=== PATIENT | female | born 1975 | race Two or more races ===

== ENCOUNTER 2016-12-13 10:15 | Emergency (ER) | payer OTHER ==
[2016-12-13] MEDS ORDERED: Ketorolac INJ* 60 MG/2 ML VIAL IM ONE (12:04)
[2016-12-13 12:18] LABS: Urine Bilirubin Negative (Negative); Urine Glucose Negative (Negative); Urine Nitrite Negative (Negative)
--- NOTE | 2016-12-13 12:40 | RAD ---
Indication: Left hip pain. Single view of the pelvis and 2 views of left hip demonstrates pelvic ring to be intact. Joint spaces are well-preserved. IMPRESSION: No fracture of the left hip is noted.
--- NOTE | 2016-12-13 12:42 | RAD ---
HISTORY: Left hip pain and low back pain COMPARISONS: CT of the lumbar spine dated November 17, 2014 VIEWS: 5 , Frontal, lateral, coned-down lateral sacral, and bilateral oblique views of the lumbar spine. FINDINGS: There is transitional last lumbar type vertebral Y which will be labeled L5 for the purposes of counting. ALIGNMENT: There is straightening of the normal lumbar lordosis. VERTEBRAL BODIES: The vertebral body heights are normal. The interpedicular distances are normal. There is partial sacralization of the L5 vertebral body JOINTS: The facet joints are normal. INTERVERTEBRAL DISCS: The intervertebral disc heights are normal. SOFT TISSUE: Unremarkable. OTHER: The pelvis is unremarkable. The lung bases are clear. IMPRESSION: STRAIGHTENING OF THE LUMBAR LORDOSIS
--- NOTE | 2016-12-13 12:47 | ED ---
Back Pain - HPI Summary HPI Summary: 41 female presents with complains of lower back and left hip pain that began suddenly Sunday night 12/09/16. 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 This time she woke up with the pain that she describes as sharp shooting pain in her lower back and left hip that radiates down her left leg. She tried taking 600mg of ibuprofen and aleve for the past 4 days without any relief. She has also tried heat, ice, icy hot patches and flexeril without any relief. Pain has been increasingly getting worse over the past few days to the point she has been unable to bear weight and move without excruciating pain. She denies any bladder/bowel incontinence, saddle anesthesia and cauda equina symptoms. Patient states the pain is worse when applying pressure to her hip and does admit to some numbness that comes and goes. Pain is constant. History of back pain. PMHx of uterine cancer. (-) risk factors for blood clot. - History of Current Complaint Chief Complaint: EDHipPelvisInjury Stated Complaint: LT HIP /LOWER BACK PAIN Time Seen by Provider: 12/13/16 11:22 Hx Obtained From: Patient Onset/Duration: Sudden Onset, Lasting Days, Still Present, Worse Since Onset/Duration: Started Days Ago Timing: Constant Back Pain Location: Is Diffuse - lower left back and left hip, Radiates To - left hip, left leg Severity Initially: Moderate Severity Currently: Severe Pain Intensity: 7 Pain Scale Used: 0-10 Numeric Character: Sharp, Aching, Throbbing, Spasmodic Aggravating Symptom(s): Movement, Lifting, Bending, Walking, Cough Alleviating Symptom(s): Nothing Associated Signs And Symptoms: Positive: Swelling, Numbness, Pain with Weight Bearing. Negative: Redness, Bruising, Fever, Tingling, Bladder Incontinence, Bowel Incontinence, Weight Loss - Risk Factors TAD Risk Factors: Negative Cauda Equina Risk Factors: Negative Epidural Abscess Risk Factors: Negative - Allergies/Home Medications Allergies/Adverse Reactions: Allergies Allergy/AdvReac Type Severity Reaction Status Date / Time Morphine Allergy Hives/Diff. Verified 12/13/16 13:24 Breathing/I tching PMH/Surg Hx/FS Hx/Imm Hx Endocrine/Hematology History: Denies: Hx Diabetes Cardiovascular History: Denies: Hx Congestive Heart Failure, Hx Hypertension Respiratory History: Reports: Other Respiratory Problems/Disorders - H/O TB AT 15 Y.O. 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 - Surgical History Surgery Procedure, Year, and Place: HYSTERECTOMY Infectious Disease History: No Infectious Disease History: Reports: Hx Tuberculosis - at age 16 Denies: Traveled Outside the [place] in Last 30 Days - Social History Alcohol Use: Weekly Substance Use Type: Reports: None Hx Tobacco Use: No Smoking Status (MU): Never Smoked Tobacco Review of Systems Constitutional: Negative Eyes: Negative ENT: Negative Cardiovascular: Negative Respiratory: Negative Gastrointestinal: Negative Genitourinary: Negative Positive: Arthralgia, Myalgia, Decreased ROM, Edema Skin: Negative Positive: Numbness - left leg Psychological: Normal All Other Systems Reviewed And Are Negative: Yes Physical Exam Triage Information Reviewed: Yes Vital Signs On Initial Exam: Initial Vitals Temp Pulse Resp BP Pulse Ox 98.2 F 74 18 123/68 100 12/13/16 10:26 12/13/16 10:26 12/13/16 10:26 12/13/16 10:26 12/13/16 10:26 Vital Signs Reviewed: Yes Appearance: Positive: Well-Appearing, Pain Distress - moderate pain distress Skin: Positive: Warm, Skin Color Reflects Adequate Perfusion, Dry Head/Face: Positive: Normal Head/Face Inspection Eyes: Positive: Conjunctiva Clear ENT: Positive: Normal ENT inspection, Hearing grossly normal Neck: Positive: Supple, Nontender, No Lymphadenopathy Respiratory/Lung Sounds: Positive: Clear to Auscultation, Breath Sounds Present Cardiovascular: Positive: Normal, RRR, Pulses are Symmetrical in both Upper and Lower Extremities. Negative: Leg Edema Left, Leg Edema Right Abdomen Description: Positive: Nontender, No Organomegaly, Soft Bowel Sounds: Positive: Present Musculoskeletal: Positive: Normal, Limited @ - left leg with any movement, positive SLR, Pain @ - with left leg movement, no tenderness on palpation of left leg, some tenderness on palpation of left hip, buttocks and lower left lumbosacral spine. sensation and skin intact. left foot ROM and entire right lower extremity intact, normal. strength intact. unable to assess gait and strength of left lower extremitiy due to pain. no obvious deformities, crepitus or step off noted. no edema, erythema or ecchymosis. Negative: David Sign Left , David Sign Right Neurological: Positive: Normal, Sensory/Motor Intact, Alert, Oriented to Person Place, Time, CN Intact II-III, Reflexes Intact, NV Bundle Intact Distally, Unable to Assess Gait - Charline Coma Scale Coma Scale Total: 15 Diagnostics - Vital Signs Vital Signs Temp Pulse Resp BP Pulse Ox 12/13/16 10:26 98.2 F 74 18 123/68 100 - Laboratory Lab Results: Lab Results 12/13/16 Range/Units 12:05 Urine Color Straw Urine Appearance Clear Urine pH 8.0 (5-9) Ur Specific [place] 1.009 L (1.010-1.030) Urine Protein Negative (Negative) Urine Ketones Negative (Negative) Urine Blood Negative (Negative) Urine Nitrate Negative (Negative) Urine Bilirubin Negative (Negative) Urine Urobilinogen Negative (Negative) Ur Leukocyte Esterase Negative (Negative) Urine Glucose Negative (Negative) Lab Statement: Any lab studies that have been ordered have been reviewed, and results considered in the medical decision making process. - Radiology left hip Xray Interpretation: No Acute Changes - No fracture of the left hip is noted. Radiology Interpretation Completed By: Radiologist lumbar spine Xray Interpretation: Positive (See Comments) - STRAIGHTENING OF THE LUMBAR LORDOSIS Radiology Interpretation Completed By: Radiologist Re-Evaluation - Re-Evaluation First Eval Re-Evaluation Time: 12:55 Change: Unchanged - patient had just recieved toradol about 10 minutes ago. will re-check Second Eval Re-Evaluation Time: 13:30 Change: Improved Comment: patients pain is unchagned after toradol, percocet and lidoderm patch administered. Third Eval Re-Evaluation Time: 15:59 Change: Unchanged Comment: patient given valium and had some relief Fourth Eval Re-Evaluation Time: 16:22 Change: Improved Comment: appears comfortale and has had some relief. will be d/c Back Pain Course/Dx - Course Course Of Treatment: Appeared to be suffering from sciatica due to PE findings and history of current illness. patient was given toradol, decadron due to sensitivity with taking oral steroids, 2 percocet, and a lidoderm patch without any relief. X-rays of hip and lumbarsacral spine and UA obtained and negative. Patient has no risk factors for DVT and PE does not appear to be related to a blood clot. Appears to be MSK related as textbook signs and symptoms of sciatica. No symptoms of cauda equina. Patient has been taking flexeril at home , a quarter of one due to feeling very drowsy after taking them, and has not had any relief. Dr Gibbs also evaluated patient as I discussed case with him. Given valium. patient's pain was hard to get under control before being discharged. Patient will be discharged home told to follow up with primary care provider tomorrow for further steriod administration and to ensure improvement. - Diagnoses Differential Diagnosis/HQI/PQRI: Positive: Herniated Disc, Strain, Sprain Provider Diagnoses: Sciatica of left side, Lumbosacral strain, Low back pain with radiation - Provider Notifications Discussed Care of Patient With: Dr Gibbs Time Discussed With Above Provider: 14:30 Discharge - Discharge Plan Condition: Stable Disposition: HOME Prescriptions: oxyCODONE/Acetamin 5/325 MG* [Percocet 5/325 TAB*] 1 tab PO Q4H PRN #15 tab MDD 8 PRN Reason: Pain Patient Education Materials: Sciatica (ED) Forms: *Work Release Referrals: Jacobo Alexander MD [Primary Care Provider] - Additional Instructions: Take prescribed pain medication to help with pain. Do not drive while taking this medication. Continue taking 600mg Ibuprofen for inflammation. Take with food. Continue taking muscle relaxer every night for the next 3-5 nights. Try getting lidoderm patches such as "Salon Pas" OTC and apply to area of pain every 12 hours. Take off after 12 hours of use. Follow up with primary care provider to obtain more steroid IM injections since you are unable to take them orally and for further imaging referral if necessary. If symptoms worsen such as increasing numbness in your inner thighs, inability to go to the bathroom ( urinate or defecate) please return to ED immediately.
[2016-12-13] MEDS ORDERED: Dexamethasone IV* 4 MG/ML 1 ML (4 MG) IM ONE (13:06)
[2016-12-13] MEDS ORDERED: Lidocaine PATCH 5%* 1 PATCH ONE (13:24)
[2016-12-13] MEDS ORDERED: oxyCODONE/Acetamin 5/325 MG* TAB PO ONE ×2 (13:27→14:24)
[2016-12-13] MEDS ORDERED: Lidocaine PATCH 5%* 1 PATCH TRANSDERM SCH (14:00)
[2016-12-13] MEDS ORDERED: Diazepam TAB(*) 2 MG PO ONE (15:31)
[2016-12-13 17:06] VITALS: BP 122/66
[2016-12-13] MEDS ORDERED: Lidocaine Patch REMOVE* 1 NOTE MISC PATCH OFF SCH (21:00)
== END 2016-12-13 17:04 | disposition home or self-care (01) ==
LOC: ED 10:15
DX: M54.42 Lumbago with sciatica, left side (principal); S39.012A Strain of muscle, fascia and tendon of lower back, initial encounter; X58.XXXA Exposure to other specified factors, initial encounter; Y93.9 Activity, unspecified; Y92.9 Unspecified place or not applicable
CPT/HCPCS: 72110; 81003; 96374; 96375; 99283; A9270-GY; J1100; J1885

== ENCOUNTER 2017-11-03 08:45 | Emergency (ER) | payer OTHER ==
--- NOTE | 2017-11-03 09:58 | RAD ---
HISTORY: Cough, fever COMPARISONS: February 25, 2016 VIEWS: 4: Frontal dual-energy and lateral views of the chest. FINDINGS: CARDIOMEDIASTINAL SILHOUETTE: The cardiomediastinal silhouette is normal. JAVIER: The javier are normal. PLEURA: The costophrenic angles are sharp. No pleural abnormalities are noted. LUNG PARENCHYMA: The lungs are clear. ABDOMEN: The upper abdomen is clear. There is no subphrenic gas. BONES AND SOFT TISSUES: The patient is status post anterior cervical fusion. Patient is status post bilateral breast augmentation. OTHER: None. IMPRESSION: NO ACTIVE CARDIOPULMONARY DISEASE.
[2017-11-03 10:58] VITALS: BP 111/78
--- NOTE | 2017-11-03 12:31 | UC ---
Graciela Stinson Nilda, scribed for Carie Lino DO on 11/03/17 at 0911 . Respiratory Complaint HPI - HPI Summary HPI Summary: This patient is a 42 year old F presenting to [facility] with a chief complaint of constant cold symptoms for the past 4 weeks. The patient rates the aching pain 6 /10 in severity. Symptoms aggravated by movement and alleviated by rest. Patient reports bilateral eye injection (burning), eye drainage, nasal congestion, rhinorrhea (green), sore throat, and ear pain. For the past two days , pt has experienced diarrhea (watery, 3x), abd cramping, myalgia, headache ( pressure), fatigue, productive cough (dao), fever (last night, 101 F), and chills. She states, the base of my lungs hurt when I cough. Patient denies bloody stools, malodorous stool, urinary symptoms, abd pain when hitting bumps in the road, and rashes. She notes she was recently in [place] to visit sick father in the hospital, and [place] the [place] about 4 days ago. - History of Current Complaint Chief Complaint: UCRespiratory Stated Complaint: URI Time Seen by Provider: 11/03/17 09:04 Hx Obtained From: Patient Onset/Duration: Sudden Onset, Lasting Weeks, Still Present Timing: Constant Severity Currently: Moderate Pain Intensity: 6 Pain Scale Used: 0-10 Numeric Character: Cough: Productive Aggravating Factors: Exertion Alleviating Factors: Other - rest Associated Signs And Symptoms: Positive: Fever, Chills, Nasal Congestion, Sinus Discomfort - Allergies/Home Medications Allergies/Adverse Reactions: Allergies Allergy/AdvReac Type Severity Reaction Status Date / Time Morphine Allergy Hives/Diff. Verified 01/04/17 08:56 Breathing/I tching Prednisone AdvReac Nausea Verified 02/16/17 14:03 Home Medications: Home Medications Acetaminophen [APAP] 650 mg PO 11/03/17 [History] PMH/Surg Hx/FS Hx/Imm Hx Previously Healthy: Yes Cancer History: Other Other Cancer History: uterine cancer - Surgical History Surgical History: Yes Surgery Procedure, Year, and Place: HYSTERECTOMY - Family History Known Family History: Positive: Hypertension, Other - liver CA, breast CA - Social History Occupation: Employed Full-time - ICU nurse Alcohol Use: None Substance Use Type: None Smoking Status (MU): Former Smoker Type: Cigarettes Have You Smoked in the Last Year: No - Immunization History Most Recent Influenza Vaccination: 2014 Most Recent Tetanus Shot: 2010 Most Recent Pneumonia Vaccination: none Review of Systems Constitutional: Fever, Chills, Fatigue Skin: Other - negative rash Eyes: Drainage, Eye Redness ENT: Sore Throat, Ear Ache, Nasal Discharge - green, Sinus Congestion Respiratory: Cough Gastrointestinal: Abdominal Pain, Diarrhea, Other - Negative bloody stools, malodorous stool, abd pain when hitting bumps in the road Genitourinary: Negative Musculoskeletal: Myalgia Neurological: Headache All Other Systems Reviewed And Are Negative: Yes Physical Exam Triage Information Reviewed: Yes Appearance: No Pain Distress, Well-Nourished, Ill-Appearing - Mildly Vital Signs: Initial Vital Signs Temp 98.7 F 11/03/17 08:49 Pulse 99 11/03/17 08:49 Resp 18 11/03/17 08:49 BP 119/70 11/03/17 08:49 Pulse Ox 100 11/03/17 08:49 Vital Signs Reviewed: Yes Eyes: Positive: Conjunctiva Inflamed, Discharge - purulent bilat ENT: Positive: Hearing grossly normal, Pharynx normal, TMs normal, Sinus tenderness - exquisit tenderness over maxillary sinuses. Negative: Tonsillar swelling, Tonsillar exudate, Trismus, Muffled voice, Hoarse voice Neck exam: Normal Neck: Positive: Supple Respiratory: Positive: Lungs clear, No respiratory distress, No accessory muscle use, Other: - prolonged expiration at bilat bases Cardiovascular: Positive: RRR, No Murmur Abdomen Description: Positive: Soft, Other: - diffuse tenderness at upper abd. Negative: CVA Tenderness (R), CVA Tenderness (L), Distended, Guarding, McBurney' s Point Tenderness, Peritoneal Signs Bowel Sounds: Positive: Present Musculoskeletal Exam: Normal Neurological: Positive: Alert, Muscle Tone Normal Psychological Exam: Normal Psychological: Positive: Age Appropriate Behavior Skin Exam: Normal Skin: Positive: Other - Warm, Dry, Normal Color UC Diagnostic Evaluation - Laboratory O2 Sat by Pulse Oximetry: 100 - Radiology Radiology Interpretation Completed By: Radiologist - CXR, per radiologist, reveals no active cardiopulmonary disease. Respiratory Course/Dx - Course Course Of Treatment: This patient is a 42 year old F presenting to [facility] with a chief complaint of constant cold symptoms for the past 2 weeks. The patient rates the aching pain 6/10 in severity. Symptoms aggravated by movement and alleviated by rest. Patient reports bilateral eye injection (burning), eye drainage, nasal congestion, rhinorrhea (green), sore throat, and ear pain. For the past two days, pt has experienced diarrhea (watery, 3x), abd cramping, myalgia, headache (pressure), fatigue, productive cough (dao), fever (last night , 101 F), and chills. She states, the base of my lungs hurt when I cough. Patient denies bloody stools, malodorous stool, urinary symptoms, abd pain when hitting bumps in the road, and rashes. She notes she was recently in [place] to visit sick father in the hospital, and returned to the [place] about 4 days ago. Pending labs and CXR. Labs reveal negative influenza A and B and unremarkable UA. CXR, per radiologist, reveals no active cardiopulmonary disease. Dr. Lino has reviewed this radiology report. Patient will be discharged with prescription for albuterol, Augmentin, Tessalon, Guaifenesin, and Ofloxacin, and follow up from PCP. The patient is agreeable with this plan. Medications reviewed. Allergies reviewed. Pt is Dx with sinusitis, conjunctivitis, gastroenteritis and abd pain. - Differential Dx/Diagnosis Provider Diagnoses: Sinusitis, conjunctivitis, gastroenteritis, and abd pain Discharge - Discharge Plan Condition: Stable Disposition: HOME Prescriptions: Albuterol HFA INHALER* [Ventolin HFA Inhaler*] 2 puff INH Q4H PRN #1 mdi PRN Reason: Sob/Wheezing Amoxicillin/Clavulanate TAB* [Augmentin TAB 875*] 875 mg PO BID #20 tab Benzonatate CAP* [Tessalon 100 MG CAP*] 100 mg PO TID #30 cap guaiFENesin ER TAB [Mucinex*] 600 mg PO BID PRN #1 box PRN Reason: Cough Ofloxacin 0.3%(Ophth)(Nf) [Ocuflox OPTH 0.3%(NF)] 0.3 % OP QID #1 bottle Patient Education Materials: Sinusitis (ED), Abdominal Pain (ED), Conjunctivitis (ED), Gastroenteritis (ED) Forms: *Work Release Referrals: Jacobo Alexander MD [Primary Care Provider] - 2 Days Additional Instructions: TRY USING THE NETTI POT IN THE MORNINGS DISCUSSED. YOU MUST ALWAYS USE CLEAN WATER. REMEMBER, POSTURE IS AN IMPORTANT FACTOR IN SINUS DRAINAGE. MOVE YOUR NECK, BREATHE. AUGMENTIN: Augmentin is a mixture of amoxicillin and clavulanate. Amoxicillin is a member of the penicillin family. It covers the germs likely to cause ear, bronchial, and urinary infections better than plain penicillin. The addition of clavulanate allows it to cover staph infections of the skin, as well as resistant cases of ear and sinus infections. Your physician has chosen Augmentin for you because of the special nature of your situation. Augmentin is best taken with meals. Nausea after taking the medication is rare, but can occur. Diarrhea can occur, particularly in small children. Vaginal yeast infections, and oral thrush in infants are also common. Contact your physician if these problems occur. Allergy to penicillins is common. If you have had an allergic reaction to any drug of the penicillin family, you should never take any other penicillin. Notify your doctor at once if you develop hives, shortness of breath, swelling, or faintness. ANYTIME YOU TAKE AN ANTIBIOTIC, IT IS IMPORTANT TO REPLENISH THE BODY'S SUPPLY OF "GOOD BACTERIA." YOU CAN GET GOOD BACTERIA FROM HIGH QUALITY CULTURED FOODS SUCH LOCAL YOGURT, SOUR KRAUT, EMILE TENISHA, NATURALLY FERMENTED PICKLES AND PROBIOTIC DRINKS. YOU CAN ALSO GET GOOD BACTERIA FROM A PROBIOTIC SUPPLEMENT. INHALED BRONCHODILATORS: You have received a prescription for an inhaled bronchodilator -- a medication which stimulates the airways in the lung to dilate. This improves the flow of air in asthma, bronchitis, and emphysema. These medicines have some similarity to adrenaline, and can cause similar side effects: shakiness, racing heart, and a sense of nervousness. These side effects decrease with time. Contact your doctor if these side effects are severe. Do not over-use the medicine. Too-frequent use of the inhaler may make it ineffective. Call your doctor if the inhaler is not controlling your symptoms at the prescribed doses. COUGH-SUPPRESSANT & EXPECTORANT MEDICATION: You are to use a cough medication as needed for relief of symptoms. This medicine is a combination of an expectorant (to make the mucous thinner and more easily "coughed up") and a cough suppressant (to reduce the frequency of coughing). The cough-suppressant medicine is related to narcotics. You may experience mild nausea and sleepiness. Some patients who are very sensitive to narcotics may have stomach pain from this medicine. Taking the medicine with food reduces these side effects. Do not drive or work with machinery until you know how this medicine affects you. The expectorant should have no side effects. Iodine-containing expectorants (such as organidin) should not be taken by persons with active thyroid disease unless approved by your doctor. Call the doctor if you develop shortness of breath, hives, rash, itching, lightheadedness, or severe nausea and vomiting. TESSALON PERLES: You have received a prescription for Tessalon Perles (benzonatate). This is a non-narcotic medicine for relief of cough. It usually works in about 15- 20 minutes and lasts around four hours. Tessalon Perles should be swallowed. They should not be chewed or dissolved in the mouth (this can produce temporary numbing of the mouth and choking can occur). If you develop any adverse effects such as wheezing, shortness of breath, hives, rash, itching, or lightheadedness, please return at once. USE EYE DROPS DIRECTED. The documentation as recorded by the Graciela thomas Nilda accurately reflects the service I personally performed and the decisions made by , Carie Lino DO.
== END 2017-11-03 11:10 | disposition home or self-care (01) ==
LOC: UCEAST 08:45
DX: J32.9 Chronic sinusitis, unspecified (principal); H10.9 Unspecified conjunctivitis; K52.9 Noninfective gastroenteritis and colitis, unspecified; R10.9 Unspecified abdominal pain; Z85.42 Personal history of malignant neoplasm of other parts of uterus; Z87.891 Personal history of nicotine dependence
CPT/HCPCS: 71046; 81003; 81025; 87502; 99212; G0463

== ENCOUNTER 2019-07-04 07:54 | Emergency (ER) | payer OTHER ==
[2019-07-04] MEDS ORDERED: Aspirin 81 mg CHEW TAB* 81 MG TAB.CHEW PO ONE (08:10)
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
[2019-07-04 08:29] VITALS: BP 116/86
== END 2019-07-04 08:28 | disposition short-term general hospital (02) ==
LOC: UCEAST 07:54
DX: R07.9 Chest pain, unspecified (principal); Z85.42 Personal history of malignant neoplasm of other parts of uterus
CPT/HCPCS: 93005; 99213; A9270-GY; G0463

== ENCOUNTER 2019-07-04 08:46 | Emergency (ER) | payer OTHER ==
[2019-07-04 09:41] LABS: ABS Eosinophils 0.2 10^3/ul (0-0.6); ABS Lymphocytes 2.2 10^3/ul (1.0-4.8); ABS Monocytes 0.3 10^3/ul (0-0.8); Eosinophil % 3.2 %; Hematocrit 41 % (35-47); Hemoglobin 13.8 g/dL (12.0-16.0); Lymphocyte % 39.3 %; Mean Corpuscular HGB Conc 34 g/dL (31-36); Mean Corpuscular Hemoglobin 27 pg (27-31); Mean Corpuscular Volume 80 fL (80-97); Mean Platelet Volume 7.2 fL (7.4-10.4); Nucleated Red Blood Cells % 0.1; Platelet Count 298 10^3/uL (150-450); Red Blood Count 5.12 10^6 /uL (3.70-4.87); Red Cell Distribution Width 13 % (10-15); White Blood Count 5.7 10^3/uL (3.5-10.8)
[2019-07-04 10:03] LABS: Albumin/Globulin Ratio 1.3 (1-3); BUN/Creatinine Ratio 25.4 (8-20); Calcium 8.9 mg/dL (8.6-10.3); EGFR African American 135.3 (>60); EGFR Non-African American 111.8 (>60); Potassium 4.2 mmol/L (3.5-5.0); Total Bilirubin 0.5 mg/dL (0.2-1.0)
[2019-07-04 10:09] LABS: HCG Pregnancy 3.62 mIU/mL
[2019-07-04] MEDS ORDERED: Ibuprofen TAB* 600 MG PO ONE (10:56)
[2019-07-04] MEDS ORDERED: Ketorolac INJ* 30 MG/ML 1 ML VIAL IV ONE (13:26)
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
[2019-07-04 14:04] VITALS: BP 103/64
== END 2019-07-04 13:50 | disposition home or self-care (01) ==
LOC: ED 08:46
DX: R07.89 Other chest pain (principal); Z85.42 Personal history of malignant neoplasm of other parts of uterus; Z90.710 Acquired absence of both cervix and uterus; Z79.899 Other long term (current) drug therapy; Z88.5 Allergy status to narcotic agent; Z88.8 Allergy status to other drugs, medicaments and biological substances
CPT/HCPCS: 36415; 71046; 80053; 83605; 84484; 84702; 85025; 85379; 93005; 96374; 99284; A9270-GY; J1885